=== PATIENT | male | born 1945 | race Caucasian/White ===

== ENCOUNTER → 2016-07-09 | Outpatient (CLI) | payer BC ==
[~2016-07-09] MED LIST: ASPEC325 PO; CEPH500C2 PO; CHOL1000 PO; HYDR-5688 PO; MULT-506 PO
--- NOTE | 2016-07-09 12:08 | DIAGNOSTIC IMAGING REPORT ---
KUB CLINICAL HISTORY: N20.0 [id number] nephrocalcinosis COMPARISON STUDY: 02/28/2010 FINDINGS: Considerable fecal material throughout the colon obscuring the renal shadows. No definite calcifications within these limitations. Increased fecal load throughout the colon. Postoperative changes low soft tissue pelvic region. IMPRESSION: No evidence for nephrocalcinosis. Compromised exam due to overlying bowel content. Increase in fecal load throughout the colon Electronically signed by: García Duran M.D. 07/09/2016 12:06 PM Dictated Date/Time: 07/09/2016 12:05 PM
== END | disposition home or self-care (01) ==
LOC: C.RADBC 11:18
PROVIDERS: ATTEND Urology
DX: N20.0 Calculus of kidney (principal)

== ENCOUNTER → 2016-08-03 | Day surgery (SDC) | payer BC ==
[2016-07-13 10:08] VITALS: Ht 174 cm; Wt 83.6 kg
[~2016-08-03] VITALS: Ht 174 cm; Wt 83.6 kg
[~2016-08-03] MED LIST changes: +ATROPINE SULFATE 0.1 MG/ML 5ML SYR IV PRN; +BUPIVACAINE 0.5 % 5 MG/1 ML PF 10ML VIAL ONE; +CEFAZOLIN 2000 MG/60 ML D5W IV SCH; +CEFAZOLIN SOD 1 GM VIAL ONE; +DEXAMETHASONE SOD INJ 4 MG/ML VIAL IV PRN; +DEXAMETHASONE SOD INJ 4 MG/ML VIAL ONE; +EpHEDrine SULFATE INJ 50 MG/ML AMP IV PRN; +FENTANYL CITRATE INJ 50 MCG/1 ML 2 ML VIAL IV PRN; +FENTANYL CITRATE INJ 50 MCG/1 ML 2 ML VIAL ONE; +HYDROCODONE/ACETAMOPHEN 5/325MG TAB PO PRN; +KETOROLAC TROMETHAMINE 15 MG/ML VIAL IV. PRN; +LABETALOL HCL IV 5 MG/ML 20ML IV PRN; +LACTATED RINGER'S 1000ML 1,000 ML IV SCH; +LIDOCAINE HCL 2% 2 ML VIAL (20MG/ML) ONE; +METOCLOPRAMIDE HCL INJ 5 MG/ML 2 ML VIAL IV PRN; +MIDAZOLAM HCL 1 MG/ML 2ML VIAL ONE; +MoRPHine SULFATE 10 MG/ML CARP/VIAL IV PRN; +ONDANSETRON INJ 2 MG/ML 2 ML VIAL IV PRN; +ONDANSETRON INJ 2 MG/ML 2 ML VIAL ONE; +PHENYLEPHRINE 100MCG/ML 5ML SYR IV PRN; +PROPOFOL IV EMULSION 10 MG/ML 20 ML VIAL IV ONE; +SODIUM CHLORIDE 0.9% 1000ML 1,000 ML IV SCH; +SODIUM CHLORIDE 0.9% INJ 10 ML VIAL ONE
--- NOTE | 2016-08-03 06:56 | History & Physical Bridge - SC ---
H&P Re-Evaluation Bridge Note: I have examined the patient, reviewed the History & Physical and in the interval since the performance of the History & Physical I have noted the following changes of clinical significance: No changes noted
--- NOTE | 2016-08-03 07:09 | Discharge Instructions-SurgCtr ---
Discharge Instructions Date of Service Aug 03, 2016. Visit Reason for Visit: Right Inguinal Hernia K40.90 Discharge Discharge Diagnosis / Problem: Rt inguinal hernia Discharge Goals Goal(s): Decrease discomfort, Improve function, Improve disease control Medications Stopped Medications Name(s): asa stopped. last dose last . Activity Recommendations Activity Limitations: as noted below Lifting Limitations: until after follow-up appointment (less than 20 lbs) Exercise/Sports Limitations: none (for 4 weeks- walking only) May Resume Sexual Activity: when tolerated Shower/Bathe: keep incision dry (may shower over incision in 2 days- Sun 08/05) Driving or Machine Use: may drive in 5 days if comfortable SPECIAL CARE INSTRUCTIONS: * Cover incisions and change daily for comfort/drainage. * Leave steri strips in place * May use ibuprofen for pain as tolerated. * Expect some swelling and bruising. Call your doctor if: * Temperature above 101 degrees * Pain not relieved by pain medicine ordered * There is increased drainage or redness from any incision * You have any unanswered questions or concerns [phone]. FOLLOW UP VISIT: If not already scheduled, please call the office for a follow-up visit. for next week- some suture removal OFFICE PHONE NUMBER: Dr. Marsh Office Anesthesia . Post Anesthesia Instructions: If you have had General Anesthesia or IV Sedation: * Do not drive today. * Resume driving when surgeon permits. * Do not make important decisions or sign legal documents today. * Call surgeon for: 1. Temperature elevations greater than 101 degrees F. 2. Uncontrollable pain. 3. Excessive bleeding. 4. Persistent nausea and vomiting. 5. Medication intolerance (nausea, vomiting or rash). * For nausea and vomiting use only clear liquids such as: tea, soda, bouillon until nausea subsides, then gradually increase diet as tolerated. * If you have any concerns or questions, call your surgeon's office. If physician is unavailable and it is an emergency, call 911 or go to the nearest emergency room. . Diet Recommendations Home Diet: resume previous diet Pending Studies Studies pending at discharge: no Medical Emergencies . Who to Call and When: Medical Emergencies: If at any time you feel your situation is an emergency, please call 911 immediately. . Non-Emergent Contact Non-Emergency issues call your: Primary Care Provider, Surgeon . . "Provider Documentation" section prepared by Rosalio Marsh.
--- NOTE | 2016-08-03 08:05 | [facility] Post Operative Brief Note ---
Immediate Operative Summary Operative Date Aug 03, 2016. Pre-Operative Diagnosis Right Inguinal Hernia Post-Operative Diagnosis Same Procedure(s) Performed Right Open Inguinal Hernia Repair with Mesh Surgeon Dr. Marsh Wearing Apparel Assembler Surgeon(s) Jeff Baugh PA-C Estimated Blood Loss 5ML Findings indirect sac Specimens A. Right Inguinal Lipoma and Sac Anesthesia gen/ LMA Complication(s) None Disposition Recovery Room / PACU
--- NOTE | 2016-08-03 08:14 | Medical Student: [facility] ---
Immediate Operative Summary Operative Date Aug 03, 2016. Pre-Operative Diagnosis Right Inguinal Hernia Post-Operative Diagnosis Right Indirect Inguinal Hernia Procedure(s) Performed Right open inguinal hernia repair with mesh placement Surgeon Dr. Rosalio Marsh Developer Analyst Surgeon(s) ELAINA Menard Estimated Blood Loss 5 cc Findings indirect inguinal hernia Fluids (cc crystalloids) 1 L Specimens 1. Lipoma 2. Right Hernia Sac Drains None Anesthesia General Complication(s) None Disposition Recovery Room / PACU
--- NOTE | 2016-08-03 08:19 | OPERATIVE REPORT ---
DATE OF OPERATION: 08/03/2016 PREOPERATIVE DIAGNOSIS: Right inguinal hernia. POSTOPERATIVE DIAGNOSIS: Same. NAME OF OPERATION: Open right inguinal hernia repair. STAFF SURGEON: Dr. Marsh. ENVIRONMENTAL WEB CRAWLER: Umesh Baugh PA-C. ANESTHESIA: General. PROCEDURE: The patient was brought in the operating room and placed on the operating table in supine position. His lower abdomen was prepped and draped in usual fashion. The skin and subcutaneous tissue on the right side were anesthetized. Incision made parallel to the inguinal ligament, carrying dissection down identifying the external oblique fibers, dissecting along their length to the external ring. The external oblique fibers were then incised from lateral to medial to the external ring mobilizing the cord structures. It was evident the patient had a chronic indirect hernia sac which was adherent to surroundings tissue. It was transected and then dissected away from the cord structures and partially excised. It was then closed using 2-0 Ethibond suture and then reduced. The internal ring was then reinforced using a mesh plug which was secured to surrounding tissue using 2-0 Ethibond suture, then a mesh patch placed into the floor of the canal around the cord structures securing it using 2-0 Ethibond suture. The external oblique fibers were then closed around the cord structures over the mesh using 2-0 Ethibond suture and 2-0 chromic catgut suture. The site was anesthetized using 0.5% plain Marcaine and then the subcutaneous tissue reapproximated using 2-0 plain catgut suture, then the skin reapproximated using 4-0 nylon suture and Steri-Strips. The patient was transferred to recovery room in stable condition. I attest to the content of the Intraoperative Record and any orders documented therein. Any exceptio ns are noted below.
[2016-08-03 09:02] VITALS: TEMP 36.4
--- NOTE | 2016-08-03 09:14 | Anesthesia Progress Nt - [facility] ---
Anesthesia Post Op Note Date & Time Aug 03, 2016 at 09:13 Vital Signs Pain Intensity: 4 Vital Signs Past 12 Hours Date Time Temp Pulse Resp B/P Pulse Ox O2 Delivery O2 Flow Rate FiO2 08/03/16 09:02 36.4 66 16 151/72 93 Room Air 08/03/16 08:52 36.7 64 16 140/75 96 Room Air 08/03/16 08:52 65 15 97 08/03/16 08:52 66 15 08/03/16 08:50 140/75 08/03/16 08:47 72 15 94 08/03/16 08:47 70 15 08/03/16 08:46 124/80 08/03/16 08:43 60 14 08/03/16 08:43 55 14 97 08/03/16 08:40 144/74 08/03/16 08:38 68 13 89 08/03/16 08:38 69 13 08/03/16 08:35 134/71 08/03/16 08:33 71 6 08/03/16 08:33 69 6 96 08/03/16 08:30 144/58 08/03/16 08:28 67 17 08/03/16 08:28 17 08/03/16 08:27 66 8 08/03/16 08:27 64 8 96 08/03/16 08:25 149/68 08/03/16 08:22 68 12 08/03/16 08:22 69 12 96 08/03/16 08:20 136/70 08/03/16 08:17 57 19 08/03/16 08:17 57 19 96 08/03/16 08:15 140/77 08/03/16 08:12 73 18 08/03/16 08:12 73 18 146/75 95 08/03/16 08:12 37.0 76 18 146/75 96 Diffusion Mask 6 08/03/16 06:36 36.5 68 18 141/70 95 Room Air Notes Mental Status: alert / awake / arousable, participated in evaluation Pt Amnestic to Procedure: Yes Nausea / Vomiting: adequately controlled Pain: adequately controlled Airway Patency, RR, SpO2: stable & adequate BP & HR: stable & adequate Hydration State: stable & adequate Anesthetic Complications: no major complications apparent
[2016-08-03 09:31] VITALS: BP 145/73; PULSE 65; O2SAT 96
== END | disposition home or self-care (01) ==
LOC: X.SURG 06:21
PROVIDERS: ATTEND Surgery
DX: K40.90 Unilateral inguinal hernia, without obstruction or gangrene, not specified as recurrent (principal); N45.1 Epididymitis; C61 Malignant neoplasm of prostate; N20.0 Calculus of kidney; N43.40 Spermatocele of epididymis, unspecified; N39.0 Urinary tract infection, site not specified; Z98.890 Other specified postprocedural states; Z79.82 Long term (current) use of aspirin

== ENCOUNTER → 2017-03-12 | Outpatient (CLI) | payer BC ==
[~2017-03-12] MED LIST changes: -ATROPINE SULFATE 0.1 MG/ML 5ML SYR IV PRN; -BUPIVACAINE 0.5 % 5 MG/1 ML PF 10ML VIAL ONE; -CEFAZOLIN 2000 MG/60 ML D5W IV SCH; -CEFAZOLIN SOD 1 GM VIAL ONE; -CEPH500C2 PO; -DEXAMETHASONE SOD INJ 4 MG/ML VIAL IV PRN; -DEXAMETHASONE SOD INJ 4 MG/ML VIAL ONE; -EpHEDrine SULFATE INJ 50 MG/ML AMP IV PRN; -FENTANYL CITRATE INJ 50 MCG/1 ML 2 ML VIAL IV PRN; -FENTANYL CITRATE INJ 50 MCG/1 ML 2 ML VIAL ONE; -HYDR-5688 PO; -HYDROCODONE/ACETAMOPHEN 5/325MG TAB PO PRN; -KETOROLAC TROMETHAMINE 15 MG/ML VIAL IV. PRN; -LABETALOL HCL IV 5 MG/ML 20ML IV PRN; -LACTATED RINGER'S 1000ML 1,000 ML IV SCH; -LIDOCAINE HCL 2% 2 ML VIAL (20MG/ML) ONE; -METOCLOPRAMIDE HCL INJ 5 MG/ML 2 ML VIAL IV PRN; -MIDAZOLAM HCL 1 MG/ML 2ML VIAL ONE; -MoRPHine SULFATE 10 MG/ML CARP/VIAL IV PRN; -ONDANSETRON INJ 2 MG/ML 2 ML VIAL IV PRN; -ONDANSETRON INJ 2 MG/ML 2 ML VIAL ONE; -PHENYLEPHRINE 100MCG/ML 5ML SYR IV PRN; -PROPOFOL IV EMULSION 10 MG/ML 20 ML VIAL IV ONE; -SODIUM CHLORIDE 0.9% 1000ML 1,000 ML IV SCH; -SODIUM CHLORIDE 0.9% INJ 10 ML VIAL ONE
[2017-03-12 14:36] LABS: BLOOD UREA NITROGEN 25 mg/dl (7-18); CREATININE 1.24 mg/dl (0.60-1.40)
== END | disposition home or self-care (01) ==
LOC: C.LABBC 10:14
PROVIDERS: ATTEND Physician Assistant
DX: H90.42 Sensorineural hearing loss, unilateral, left ear, with unrestricted hearing on the contralateral side (principal)

== ENCOUNTER → 2017-03-22 | Outpatient (CLI) | payer BC ==
[~2017-03-22] MED LIST changes: +GADAVIST IV PRN
--- NOTE | 2017-03-22 09:49 | DIAGNOSTIC IMAGING REPORT ---
BRAIN COMBO FOR IAC HISTORY: 72 years-old Male H61.21 Impacted cerumen of right ear LEFT GREATER THAN RIGHT asymmetric hearing loss, left greater than right COMPARISON: None available TECHNIQUE: Multiplanar multisequence MRI of the brain was obtained both with and without the use of 8 mL Gadavist utilizing institutional internal auditory canal protocol FINDINGS: There is no restricted diffusion to suggest acute infarction. The midline structures including the corpus callosum, brainstem, optic chiasm, infundibulum, pituitary and pineal glands are unremarkable. No cerebellar tonsillar herniation. Degenerative changes are seen within the imaged upper cervical spine. No acute intracranial hemorrhage, midline shift, hydrocephalus, intracranial mass or abnormal extra-axial collections. There is mild to moderate atrophy of the brain parenchyma. Scattered foci of increased T2/FLAIR signal are seen within the subcortical and periventricular white matter suggesting chronic microvascular ischemic changes. The bilateral internal artery canals are within normal limits without focal mass. No cerebellar pontine angle lesions identified. The cisternal portions of the trigeminal nerves are within normal limits. Course of the 7th and 8th cranial nerves are also within normal limits. There is no abnormal intra-axial or extra-axial enhancement identified. The scalp, calvarium and soft tissues are unremarkable. Mild maxillary and ethmoid sinus disease. The major flow voids at the level of the skull base appear patent. IMPRESSION: 1. No acute intracranial abnormality. 2. Unremarkable appearance of the bilateral internal auditory canals without focal mass or abnormal enhancement. 3. Mild to moderate brain atrophy with chronic microvascular ischemic changes. The above report was generated using voice recognition software. It may contain grammatical, syntax or spelling errors. Electronically signed by: Andrae Albert M.D. 03/22/2017 9:47 AM Dictated Date/Time: 03/22/2017 9:42 AM
== END | disposition home or self-care (01) ==
LOC: C.MRI 08:38
PROVIDERS: ATTEND Physician Assistant
DX: H61.21 Impacted cerumen, right ear (principal); G31.9 Degenerative disease of nervous system, unspecified

== ENCOUNTER 2017-05-15 09:32 | Emergency (ER) | payer BC ==
[~2017-05-15] VITALS: Ht 175.3 cm; Wt 84.9 kg
[~2017-05-15 09:32] MED LIST changes: -GADAVIST IV PRN
[2017-05-15 09:37] VITALS: TEMP 36.3; Ht 175.3 cm; Wt 84.9 kg
--- NOTE | 2017-05-15 10:31 | EMERGENCY ROOM VISIT NOTE ---
History Report prepared by Mina: Bradly Arthur Under the Supervision of: Dr. Sampson Kellogg M.D. First contact with patient: 10:08 Chief Complaint: FALL Stated Complaint: FALL,HIT HEAD,BLACKED OUT MOMENTARILY History of Present Illness The patient is a 72 year old male who presents to the Emergency Room with complaints of posterior head pain after slipping on ice falling backwards and hitting his head prior to arrival. There is a question of a brief LOC of seconds however patient able to get up with assistance and now he complains of headache in the back of his head. Otherwise denies nausea or vomiting, changes in vision, weakness, difficulty with balance or ambulation. He does take 2 full dose aspirin daily for long-standing muscular skeletal pain. Source of History: patient Onset: prior to arrival Position: other (global) Quality: other (fall) Timing: other (sudden) Associated Symptoms: + headache, No nausea, No vomiting, No weakness Review of Systems See HPI for pertinent positives and negatives. A total of ten systems were reviewed and were otherwise negative. Past Medical & Surgical Surgical Problems: (1) H/O prostatectomy Social History Smoking Status: Never Smoker Marital Status: Housing Status: lives with family Occupation Status: employed Current/Historical Medications Scheduled Aspirin (Aspirin), 650 MG PO DAILY Cholecalciferol (Vitamin D3), 1,000 UNITS PO QAM Multivitamin (Multivitamin), 1 TAB PO QAM Allergies Coded Allergies: No Known Allergies (Verified , 05/15/17) Physical Exam Vital Signs Date Time Temp Pulse Resp B/P (MAP) Pulse Ox O2 Delivery O2 Flow Rate FiO2 05/15/17 12:54 55 16 157/58 95 05/15/17 11:35 53 16 146/68 98 Room Air 05/15/17 09:37 36.3 74 18 162/75 93 Room Air Physical Exam GENERAL: Awake, alert, uncomfortable-appearing, in no distress HENT: 2cm contusion with overlying abrasion to the occipital scalp. Neuro intact. Normocephalic. Oropharynx unremarkable. EYES: Normal conjunctiva. Sclera non-icteric. NECK: Supple. No nuchal rigidity. FROM. No JVD. RESPIRATORY: Clear to auscultation. CARDIAC: Regular rate, normal rhythm. Extremities warm and well perfused. Pulses equal. ABDOMEN: Soft, non-distended. No tenderness to palpation. No rebound or guarding. No masses. RECTAL: Deferred. MUSCULOSKELETAL: Chest examination reveals no tenderness. The back is symmetrical on inspection without obvious abnormality. There is no CVA tenderness to palpation. No joint edema. LOWER EXTREMITIES: Calves are equal size bilaterally and non-tender. No edema. No discoloration. NEURO: Normal sensorium. No sensory or motor deficits noted. Normal cerebellar function with [id number], alternating palms, dyvv-no-lied. SKIN: No rash or jaundice noted. Medical Decision & Procedures ER Provider Diagnostic Interpretation: Radiology results as stated below per my review and radiologist interpretation: HEAD WITHOUT CONTRAST (CT) CT DOSE: 788.63 mGycm HISTORY: Trauma fall, FERNANDEZ TECHNIQUE: Multiaxial CT images of the head were performed without the use of intravenous contrast. A dose lowering technique was utilized adhering to the principles of ALARA. Comparison: None. Findings: The paranasal sinuses and mastoid air cells are clear. The calvarium and skull base are intact. The ventricles and sulci are within normal limits. There is no mass, hematoma, midline shift, or acute infarct. Age-related atrophy and chronic small vessel change Impression: No acute intracranial abnormality. The above report was generated using voice recognition software. It may contain grammatical, syntax or spelling errors. Electronically signed by: García Duran M.D. 05/15/2017 11:10 AM Dictated Date/Time: 05/15/2017 11:09 AM Medications Administered Medications (Trade) Dose Ordered Sig/Shanta Route Start Time Stop Time Status Last Admin Dose Admin Acetaminophen (Tylenol Tab) 1,000 mg NOW STAT PO 05/15/17 10:41 05/15/17 10:42 DC 05/15/17 10:51 1,000 MG ED Course 1008: The patient was evaluated in room B12. A complete history and physical exam was performed. 1250: I reevaluated the patient. Discussed results and discharge instructions: he verbalized understanding and agreement. The patient is ready for discharge. Medical Decision I reviewed the patient's past medical history, medications, and the nursing notes as described above. Differential diagnosis includes skull fracture, ICH, soft tissue injury on others. Patient is a 72-year-old gentleman who currently takes 2 full dose aspirin for MSK pain presents emergency department after having a mechanical fall slipping on ice prior to arrival falling backwards and hitting the back of his head with a question of brief LOC per hpi. On arrival, the patient is well-appearing, afebrile, stable vital signs. He is neurologically intact including normal cerebellar function with sjoyvz-[id number], alternating palms, [id number]. CT head negative. Patient continues to be well-appearing. The patient was given concussion instructions and explained the risks of possible delayed bleed given his to full dose daily aspirin. Findings and plan for follow-up reviewed with patient. Patient agreeable and d/c'd per discharge instructions. Medication Reconcilliation Current Medication List: was personally reviewed by me Blood Pressure Screening Patient's blood pressure: Elevated blood pressure Blood pressure disposition: Elevated BP felt to be situational Impression Primary Impression: Head injury, closed Additional Impressions: Abrasion of scalp Contusion of scalp Scribe Attestation The scribe's documentation has been prepared under my direction and personally reviewed by me in its entirety. I confirm that the note above accurately reflects all work, treatment, procedures, and medical decision making performed by me. Departure Information Dispostion Home / Self-Care Referrals Ghulam Benitez M.D. (PCP) Forms HOME CARE DOCUMENTATION FORM, IMPORTANT VISIT INFORMATION Patient Instructions ED Abrasion, ED Concussion, ED Contusion Scalp, ED Head Injury Closed, [facility] Additional Instructions Please follow up with your primary care physician in the next 1-3 days for re- evaluation. You had a closed head injury. It is possible that you may exhibit signs of concussion in the future but you did not at this time. Otherwise, your exam and CT scan did not show signs of an emergent condition at this time. Acetaminophen for pain and fevers as needed. Drink plenty of fluids to ensure hydration. Avoid sensory stimulus if you experience concussion symptoms. Return to the emergency department for worsening symptoms as described in the accompanying instructions. Problem Qualifiers
[2017-05-15] MEDS ORDERED: ACETAMINOPHEN 500 MG TAB PO STA (10:41)
--- NOTE | 2017-05-15 11:11 | DIAGNOSTIC IMAGING REPORT ---
HEAD WITHOUT CONTRAST (CT) CT DOSE: 788.63 mGycm HISTORY: Trauma fall, FERNANDEZ TECHNIQUE: Multiaxial CT images of the head were performed without the use of intravenous contrast. A dose lowering technique was utilized adhering to the principles of ALARA. Comparison: None. Findings: The paranasal sinuses and mastoid air cells are clear. The calvarium and skull base are intact. The ventricles and sulci are within normal limits. There is no mass, hematoma, midline shift, or acute infarct. Age-related atrophy and chronic small vessel change Impression: No acute intracranial abnormality. The above report was generated using voice recognition software. It may contain grammatical, syntax or spelling errors. Electronically signed by: García Duran M.D. 05/15/2017 11:10 AM Dictated Date/Time: 05/15/2017 11:09 AM
[2017-05-15] MEDS ORDERED: ASPI325T4 PO (11:16)
[2017-05-15 12:54] VITALS: BP 157/58; PULSE 55; O2SAT 95
== END 2017-05-15 12:59 | disposition home or self-care (01) ==
LOC: C.EDB 09:37
DX: S00.03XA Contusion of scalp, initial encounter (principal); S00.01XA Abrasion of scalp, initial encounter; W00.9XXA Unspecified fall due to ice and snow, initial encounter; R03.0 Elevated blood-pressure reading, without diagnosis of hypertension; Z79.82 Long term (current) use of aspirin

== ENCOUNTER → 2017-06-17 | Outpatient (CLI) | payer BC ==
[~2017-06-17] MED LIST changes: -ASPEC325 PO; +ASPI325T4 PO
--- NOTE | 2017-06-17 10:12 | DIAGNOSTIC IMAGING REPORT ---
L-SPINE MIN 4 VIEWS ROUTINE CLINICAL HISTORY: LUMBAGO COMPARISON: None FINDINGS: Alignment of the lumbar spine is anatomic. There is no acute fracture or suspicious lesion. There is moderate disc space narrowing at L5-S1 with vacuum disc phenomenon and osteophytosis. There is moderate multilevel facet arthrosis. IMPRESSION: 1. No lumbar spine fracture or subluxation. 2. Moderate degenerative disc disease at L5-S1 and moderate multilevel facet arthrosis. Electronically signed by: Curtis Suero M.D. 06/17/2017 10:10 AM Dictated Date/Time: 06/17/2017 10:09 AM
== END | disposition home or self-care (01) ==
LOC: C.RADBC 09:40
PROVIDERS: ATTEND Family Medicine
DX: M54.5 Low back pain (principal); M51.37 Other intervertebral disc degeneration, lumbosacral region